=== PATIENT | female | born 1965 | race Caucasian/White ===

== ENCOUNTER 2019-04-05 19:45 | Inpatient (IN) | payer OTHER ==
[~2019-04-05] VITALS: Ht 162.6 cm; Wt 138.2 kg
--- NOTE | 2019-04-05 20:02 | NUR ---
PT BIB [facility] FROM HOME FOR "BURPING/INDIGESTION" AND ANXIETY-RELATED CHEST PAIN. PER EMS, PT STATES NAUSEA AND HAD ONE EPISODE OF VOMITTING BUT CHEST PAIN HAS RESOLVED EN ROUTE. PT AAO X 4, NAD, ROOM AIR, CALL LIGHT WITHIN REACH. PT DRESSED IN GOWN AND ON FULL MONITOR. EKG COMPLETED. PT STATES INTERMITTENT "SICKNESS SINCE DECEMBER."
[2019-04-05] MEDS ORDERED: ASPIRIN 81 MG TABLET CHEW ONE (20:29)
[2019-04-05] MEDS ORDERED: ASPIRIN 81 MG TABLET CHEW PO ONE (20:30)
[2019-04-05] MEDS ORDERED: SODIUM CHLORIDE FLUSH 10ML SYR IVF ONE (20:30)
--- NOTE | 2019-04-05 20:31 | NUR ---
PT MEDICATED PER ORDERS. LAB AT BEDSIDE.
[2019-04-05 20:53] LABS: ALANINE AMINOTRANSFERASE 58 U/L (12-78); ALBUMIN 3.5 g/dL (3.4-5.0); ANION GAP 4 mmol/L (5-15); CALCIUM 8.6 mg/dL (8.5-10.1); CHLORIDE 106 mmol/L (98-107); CREATININE 0.83 mg/dL (0.55-1.02)
--- NOTE | 2019-04-05 20:55 | NUR ---
REPORT GIVEN TO CARMEN ELLSWORTH. CARE TRANSFERRED AT THIS TIME.
[2019-04-05 20:56] LABS: BASOPHILS # (AUTO) 0.03 x10^3/uL (0-0.1); BASOPHILS % (AUTO) 1 % (0-1); EOSINOPHILS # (AUTO) 0.15 x10^3/uL (0-0.4); EOSINOPHILS % (AUTO) 3 % (1-7); LYMPHOCYTES # (AUTO) 2.11 x10^3/uL (1-3.4); LYMPHOCYTES % (AUTO) 39 % (22-44); MD NO; MEAN CORPUSCULAR HEMOGLOBIN 27.7 pg (27.0-34.8); MEAN PLATELET VOLUME 8.9 fL (7.4-10.4); MONOCYTES # (AUTO) 0.28 x10^3/uL (0.2-0.8); MONOCYTES % (AUTO) 5 % (2-9); NEUTROPHILS # (AUTO) 2.83 x10^3/uL (1.8-6.8); NEUTROPHILS % (AUTO) 52 % (42-75); PLATELET COUNT 226 x10^3/uL (130-400); RED CELL DISTRIBUTION WIDTH 15.3 % (9.6-15.2)
[2019-04-05 20:57] LABS: ALKALINE PHOSPHATASE 126 U/L (45-117); BILIRUBIN,TOTAL 0.3 mg/dL (0.2-1.0); TOTAL PROTEIN 7.3 g/dL (6.4-8.2); TROPONIN I 0.064 ng/mL (0.000-0.045)
--- NOTE | 2019-04-05 20:57 | NUR ---
REPORT RECEIVED FROM CARMEN KAMARA. ASSUMED CARE OF PT
--- NOTE | 2019-04-05 21:38 | NUR ---
PT. TO BE ADMIT; PT. REPORTS SHE HAS [facility] [employer]. CALLED [facility] TRANSF[facility]; PER CARMEN PEOPLES CM PT. TO STAY HERE FOR TREATMENT. PT. WAS SENT HERE WHEN [facility] WAS ON [facility].
--- NOTE | 2019-04-05 22:01 | NUR ---
DAVE, HOSPITALIST AT BEDSIDE EVALUATING PT.
[2019-04-05] MEDS ORDERED: ACETAMINOPHEN 325 MG TABLET PO PRN (23:00)
[2019-04-05] MEDS ORDERED: ONDANSETRON 2MG/ML, 2ML IVPush PRN (23:00)
[2019-04-05] MEDS ORDERED: TEMAZEPAM 15 MG CAPSULE PO PRN (23:00)
[2019-04-05] MEDS ORDERED: ENOXAPARIN 40 MG/0.4 ML SQ SCH (23:00)
[2019-04-05] MEDS ORDERED: ENALAPRILAT 1.25 MG/ML, 2ML IVPush PRN (23:00)
[2019-04-05] MEDS ORDERED: LIDODERM 5% PATCH TD PRN (23:00)
[2019-04-05] MEDS ORDERED: DOCUSATE 100 MG CAPSULE PO PRN (23:00)
--- NOTE | 2019-04-05 23:16 | NUR ---
PT RESTING ON GURNEY, C/O THE IV "ANNOYING ME". NO REDNESS OR SIGNS OF INFILTRATION NOTED. PT REPORTS IT "ANNOYS ME WHEN I BEND MY ARM". THIS RN OFFERED TO START A NEW ONE SOMEWHERE ELSE, PT DECLINED. AWAITING ROOM FOR PT ON TELE FLOOR.
--- NOTE | 2019-04-06 00:13 | NUR ---
REPORT TO CARMEN ABBOTT
[2019-04-06 00:40] VITALS: BP 107/69
[2019-04-06] MEDS: PANTOPRAZOLE 40 MG IV IVPush SCH ×2 (00:55→08:16)
[2019-04-06] MEDS: NICOTINE 21 MG/24 HR PATCH.TD24 TD SCH ×2 (00:55→22:55)
[2019-04-06 02:48] LABS: BASOPHILS # (AUTO) 0.04 x10^3/uL (0-0.1); BASOPHILS % (AUTO) 1 % (0-1); EOSINOPHILS # (AUTO) 0.17 x10^3/uL (0-0.4); EOSINOPHILS % (AUTO) 3 % (1-7); LYMPHOCYTES # (AUTO) 2.85 x10^3/uL (1-3.4); LYMPHOCYTES % (AUTO) 46 % (22-44); MD NO; MEAN CORPUSCULAR HEMOGLOBIN 27.4 pg (27.0-34.8); MEAN CORPUSCULAR HGB CONC 32.8 g/dL (32.4-35.8); MEAN CORPUSCULAR VOLUME 83.7 fL (80-100); MEAN PLATELET VOLUME 8.8 fL (7.4-10.4); MONOCYTES % (AUTO) 6 % (2-9); NEUTROPHILS # (AUTO) 2.79 x10^3/uL (1.8-6.8); NEUTROPHILS % (AUTO) 45 % (42-75); PLATELET COUNT 200 x10^3/uL (130-400); RED BLOOD COUNT 5.36 x10^6/uL (3.82-5.3); RED CELL DISTRIBUTION WIDTH 15.4 % (9.6-15.2)
[2019-04-06 02:56] VITALS: BP 107/69
[2019-04-06 02:58] LABS: ANION GAP 4 mmol/L (5-15); CALCIUM 8.6 mg/dL (8.5-10.1); CHLORIDE 108 mmol/L (98-107); CREATININE 0.74 mg/dL (0.55-1.02)
[2019-04-06 03:07] LABS: TROPONIN I 0.901 ng/mL (0.000-0.045)
[2019-04-06] MEDS ORDERED: HEPARIN 5,000 UNITS/ML, 1ML IV ONE (05:30)
[2019-04-06] MEDS: HEPARIN 25,000 UNITS/250ML PMX 250 ML IV PRN (06:28)
[2019-04-06 08:00] VITALS: BP 127/85
[2019-04-06 11:37] LABS: TROPONIN I 0.707 ng/mL (0.000-0.045)
[2019-04-06 11:42] LABS: CHOL/HDL RATIO 10.1; LDL/HDL RATIO 6.3 (0.5-3.0)
[2019-04-06] MEDS ORDERED: THYR180T PO (11:45)
[2019-04-06] MEDS ORDERED: THYR15TA PO (11:45)
[2019-04-06] MEDS: HEPARIN 5,000 UNITS/ML, 1ML IV PRN ×2 (12:50→20:15)
[2019-04-06] MEDS ORDERED: REGADENOSON 0.4 MG/5 ML SYRINGE ONE (12:52)
[2019-04-06 13:32] LABS: FREE T4 (FREE THYROXINE) 0.64 ng/dL (0.76-1.46)
[2019-04-06 14:20] VITALS: BP 129/83
[2019-04-06] MEDS: CARVEDILOL 3.125 MG TABLET PO SCH (18:16)
[2019-04-06] MEDS ORDERED: ZINC50TA3 PO (18:32)
[2019-04-06] MEDS ORDERED: LACT1CAP64 PO (18:32)
[2019-04-06] MEDS ORDERED: vitamin A PO (18:32)
[2019-04-06] MEDS ORDERED: ACET-1600 PO (18:32)
[2019-04-06] MEDS ORDERED: Vitamin A PO (18:32)
[2019-04-06] MEDS ORDERED: CHOL10003 PO (18:32)
[2019-04-06] MEDS ORDERED: [UNRECOGNIZED DRUG - CODE] PO (18:32)
[2019-04-06] MEDS ORDERED: MECO10005 PO (18:32)
[2019-04-06] MEDS ORDERED: FLUT9.9S INH (18:32)
[2019-04-06] MEDS ORDERED: SELE200T10 PO (18:32)
[2019-04-06 20:30] VITALS: BP 110/69
[2019-04-06] MEDS ORDERED: ATORVASTATIN 20 MG TABLET PO SCH (21:00)
[2019-04-07 02:08] VITALS: BP 115/75
[2019-04-07] MEDS: HEPARIN 25,000 UNITS/250ML PMX 250 ML IV PRN (02:37)
[2019-04-07] MEDS: CARVEDILOL 3.125 MG TABLET PO SCH ×2 (05:31→17:30)
[2019-04-07] MEDS ORDERED: LEVOTHYROXINE 75 MCG TABLET PO SCH (06:00)
[2019-04-07 07:29] VITALS: BP 103/76
[2019-04-07] MEDS: PANTOPRAZOLE 40 MG IV IVPush SCH (08:30)
[2019-04-07] MEDS ORDERED: THYROID 30 MG TABLET PO SCH ×2 (09:00)
[2019-04-07] MEDS ORDERED: LISINOPRIL 5 MG TABLET PO SCH (09:00)
[2019-04-07] MEDS ORDERED: ASPIRIN 81 MG TABLET EC PO SCH (10:00)
[2019-04-07] MEDS ORDERED: SODIUM CHLORIDE 0.9% 1,000 ML IV SCH (11:00)
[2019-04-07 15:00] VITALS: BP 137/72
[2019-04-07] MEDS ORDERED: CARV3.1212 PO (16:54)
[2019-04-07] MEDS ORDERED: LISI5TAB7 PO (16:54)
[2019-04-07] MEDS ORDERED: ASPI81TA45 PO (16:54)
[2019-04-07] MEDS ORDERED: FURO-93 PO (16:54)
[2019-04-07] MEDS ORDERED: ATOR20TA37 PO (16:54)
[2019-04-07] MEDS ORDERED: PANT40TA5 PO (16:54)
[2019-04-07] MEDS ORDERED: THYR15TA PO (16:54)
[2019-04-07] MEDS ORDERED: NITR0.4T41 SL (16:54)
[2019-04-07] MEDS ORDERED: CLOPIDOGREL 75 MG TABLET PO SCH (17:00)
[2019-04-08] MEDS ORDERED: PANTOPROZOLE 40MG TABLET PO SCH (06:00)
== END 2019-04-07 18:44 | disposition home or self-care (01) | DRG 281 ==
LOC: ED 21:49 → EDIP 23:55 → 5SO 04-06 00:30
PROVIDERS: ADMIT Hospitalist; ATTEND Hospitalist
DX: I21.09 ST elevation (STEMI) myocardial infarction involving other coronary artery of anterior wall (principal); Z68.43 Body mass index [BMI] 50.0-59.9, adult; E06.3 Autoimmune thyroiditis; E66.01 Morbid (severe) obesity due to excess calories; E74.39 Other disorders of intestinal carbohydrate absorption; E78.1 Pure hyperglyceridemia; E78.5 Hyperlipidemia, unspecified; E88.81 Metabolic syndrome and other insulin resistance; F17.210 Nicotine dependence, cigarettes, uncomplicated; I25.5 Ischemic cardiomyopathy; J06.9 Acute upper respiratory infection, unspecified; K21.9 Gastro-esophageal reflux disease without esophagitis; K52.9 Noninfective gastroenteritis and colitis, unspecified; Z88.2 Allergy status to sulfonamides; Z90.49 Acquired absence of other specified parts of digestive tract
CPT/HCPCS: 36415; 71046; 78452; 80048; 80053; 80061; 83036; 83690; 83880; 84439; 84443; 84481; 84484; 85025; 85520; 93005; 93017; 93306; 99285; G0378; J1644; J1650; J2785; A9502; C9113; J7030